=== PATIENT | female | born 1975 | race African-American/Black ===

== ENCOUNTER 2019-03-26 12:54 | Emergency (ER) | payer BC ==
[~2019-03-26] VITALS: Wt 77.1 kg
--- NOTE | 2019-03-26 13:33 | ERD ---
ER Documentation Chief Complaint Chief Complaint ref for abn US: 8 wks preg, 'they didn't see the baby'. no bleed/pain HPI History of Present Illness: 43-year-old female who denies a past medical history coming in today due to unable to visualize intrauterine on ultrasound today. Patient reports that she was confirmed approximately 3 weeks ago on a urine test. Patient reports she has had blood work but has been unable to get in with [facility]. Last menstrual period 01/23/2019. Patient is A1. Patient denies nausea, vomiting, diarrhea, constipation, abdominal pain. Patient denies vaginal discharge, vaginal bleeding. At home pharmacological/nonpharmacological treatment for symptoms: Denies Denies social concerns; Denies recent foreign travel ROS All systems reviewed and are negative except as per history of present illness. Allergies Allergies: Coded Allergies: No Known Allergy (Unverified , 03/26/19) FmHx Family History: diabetes; No coronary disease Physical Exam Vitals Vital Signs Date Temp Pulse Resp B/P (MAP) Pulse Ox O2 O2 Flow FiO2 Time Delivery Rate 03/26/19 97.9 66 18 134/65 98 Room Air 15:53 (88) 03/26/19 98.2 95 16 143/67 100 13:01 (92) Physical Exam Const: No acute distress Head: Atraumatic Eyes: Normal Conjunctiva ENT: Normal External Ears, Nose and Mouth. Neck: Full range of motion. No meningismus. Resp: Clear to auscultation bilaterally Cardio: Regular rate and rhythm, no murmurs Abd: Soft, non tender, non distended. Normal bowel sounds Skin: No petechiae or rashes Back: No midline or flank tenderness Ext: No cyanosis, or edema Neur: Awake and alert Psych: Normal Mood and Affect Result Diagram: 03/26/19 1334 Results 24 hrs Laboratory Tests Test 03/26/19 13:34 White Blood Count 10.3 10^3/ul Red Blood Count 3.97 10^6/ul Hemoglobin 11.4 g/dl Hematocrit 34.8 % Mean Corpuscular Volume 87.7 fl Mean Corpuscular Hemoglobin 28.7 pg Mean Corpuscular Hemoglobin Concent 32.8 g/dl Red Cell Distribution Width 13.4 % Platelet Count 180 10^3/UL Mean Platelet Volume 12.0 fl Immature Granulocytes % 0.600 % Neutrophils % 66.2 % Lymphocytes % 24.4 % Monocytes % 7.2 % Eosinophils % 1.0 % Basophils % 0.6 % Nucleated Red Blood Cells % 0.0 /100WBC Immature Granulocytes # 0.060 10^3/ul Neutrophils # 6.8 10^3/ul Lymphocytes # 2.5 10^3/ul Monocytes # 0.7 10^3/ul Eosinophils # 0.1 10^3/ul Basophils # 0.1 10^3/ul Nucleated Red Blood Cells # 0.0 10^3/ul Urine Color YELLOW Urine Clarity CLOUDY Urine pH 7.0 Urine Specific [place] 1.006 Urine Ketones NEGATIVE mg/dL Urine Nitrite NEGATIVE mg/dL Urine Bilirubin NEGATIVE mg/dL Urine Urobilinogen NEGATIVE mg/dL Urine Leukocyte Esterase NEGATIVE [place]/ul Urine Microscopic RBC 0 /HPF Urine Microscopic WBC 0 /HPF Urine Squamous Epithelial Cells FEW /HPF Urine Hemoglobin NEGATIVE mg/dL Urine Glucose NEGATIVE mg/dL Urine Total Protein NEGATIVE mg/dl Beta HCG, Quantitative 46507.0 mIU/ml Procedures/MDM ED course includes a thorough examination and history. Medications: Imaging: Transvaginal and abdominal OB ultrasound Labs: CBC, Rh, beta quantitative, urinalysis Low suspicion for life-threatening medical emergency. Low suspicion for acute abdominal emergency or obstetrical/gynecological emergency that requires hospit alization or immediate surgical intervention. Otherwise healthy patient presenting with constellation of symptoms likely representing live intrauterine as characterized by history, physical exam findings, lab findings. CBC: no e/o of systemic infection or severe anemia. Beta quantitative 80K Urinalysis negative for infection. Patient reassessment 1740: Patient hemodynamically stable. No respiratory distress, otherwise relatively well appearing and nontoxic. Disposition given. Results of ultrasound and labs given. patient educated on diagnoses, prescriptions, follow-up care, return precautions. Strict return precautions given for worsening condition; questions answered discharge. Disposition for discharge with followup in 2 days with PCP/clinic. Departure Diagnosis: Primary Impression: Encounter for ultrasound to assess growth Additional Impression: Intrauterine Condition: Stable VILMA MORE NP Mar 26, 2019 13:33 NAINA MCCLELLAN MD Mar 27, 2019 12:17
[2019-03-26 15:53] VITALS: BP 134/65; PULSE 66; RESP 18
== END 2019-03-26 15:54 | disposition home or self-care (01) ==
LOC: FTE 12:54
DX: O26.891 Other specified pregnancy related conditions, first trimester (principal); R10.2 Pelvic and perineal pain; Z36.89 Encounter for other specified antenatal screening
CPT/HCPCS: 36415; 76801; 81001; 84702; 85025; 86900; 86901; Z7502